=== PATIENT | male | born 1955 | race Caucasian/White ===

== ENCOUNTER → 2016-08-04 | Outpatient (CLI) | payer MEDICAID ==
[2016-08-04 13:10] LABS: CH 30.8; CHCM 32.7; HCT 45.4 % (39.0-53.0); HDW 2.32; HGB 14.4 gm/dL (13.0-17.5); MCHC 31.7 g/dL (31.0-37.0); MCV 94.5 fL (80.0-100.0); Mean Platelet Volume 7.4; RDW 13.6 % (11.5-15.5); WBC 7.7 k/uL (3.8-10.6)
[2016-08-04 13:36] LABS: Magnesium 2.2 mg/dL (1.6-2.3)
[2016-08-04 14:07] LABS: Prostate Specific Antigen 1.2 ng/mL (0.00-4.00)
[2016-08-04 19:49] LABS: Lead Source VENOUS; Lead, Blood <3.4 ug/dL (0.0-9.8)
[2016-08-09 21:01] LABS: Mercury Whole Blood < 2 mcg/L (< 11)
== END | disposition home or self-care (01) ==
LOC: LABWHC1 12:20
PROVIDERS: ATTEND Family Medicine
DX: D64.9 Anemia, unspecified (principal); K21.0 Gastro-esophageal reflux disease with esophagitis; Z77.011 Contact with and (suspected) exposure to lead
CPT/HCPCS: 36415; 80061; 82175; 82570; 83655; 83735; 83825; 84153; 84450; 85027

== ENCOUNTER 2017-11-09 09:19 | Emergency (ER) | payer OTHER, MEDICAID ==
[2017-11-09 09:26] VITALS: TEMP 98
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
[2017-11-09 11:00] VITALS: BP 151/79; PULSE 72; RESP 16
== END 2017-11-09 11:00 | disposition home or self-care (01) ==
LOC: EC 09:19
DX: S06.0X0A Concussion without loss of consciousness, initial encounter (principal); R09.81 Nasal congestion; K21.9 Gastro-esophageal reflux disease without esophagitis; Z87.891 Personal history of nicotine dependence; Z79.899 Other long term (current) drug therapy; V43.52XA Car driver injured in collision with other type car in traffic accident, initial encounter; Y92.410 Unspecified street and highway as the place of occurrence of the external cause
CPT/HCPCS: 70450; 72125; 99284

== ENCOUNTER → 2017-11-30 | Outpatient (CLI) | payer MEDICAID ==
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
== END | disposition home or self-care (01) ==
LOC: RADMRIMAIN 08:13
PROVIDERS: ATTEND Family Medicine
DX: I67.1 Cerebral aneurysm, nonruptured (principal)
CPT/HCPCS: 70544

== ENCOUNTER → 2018-05-11 | Outpatient (CLI) | payer MEDICAID ==
--- NOTE | 2018-05-12 00:07 | MR ---
EXAMINATION TYPE: MR cervical spine wo con DATE OF EXAM: 05/11/2018 COMPARISON: None HISTORY: Cervicalgia / Spondylolisthesis, numbness in both arms TECHNIQUE: Multiplanar, multisequence images of the cervical spine were acquired. Cervical vertebra have normal alignment. There is some degenerative disc space narrowing throughout t he cervical spine with decreased signal in the disks. There are small posterior disc bulges from C3 t o C7. Spinal canal is narrowed to 7 mm at C4-5 which is the narrowest. Canal is 8.5 mm at C3-4 and 8. 5 mm at C6-7. Cervical spinal cord has normal signal pattern. There is no edema. Brainstem appears no rmal. There is no compression fracture. There is no subluxation. Posterior elements are intact. There is no evidence of cervical paraspinal mass. IMPRESSION: Spondylotic changes. No fracture seen. Multilevel posterior small disc bulging and herniation without significant spinal stenosis.
== END ==
LOC: RADMRIMAIN 06:39
PROVIDERS: ATTEND Orthopaedic Surgery Orthopaedic Surgery of the Spine
DX: M50.21 Other cervical disc displacement, high cervical region (principal); M47.812 Spondylosis without myelopathy or radiculopathy, cervical region
CPT/HCPCS: 72141

== ENCOUNTER → 2018-08-10 | Outpatient (CLI) | payer MEDICAID ==
[2018-08-10 10:36] VITALS: BP 121/79; PULSE 65; RESP 16
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
== END | disposition home or self-care (01) ==
LOC: PNWHC3 10:12
PROVIDERS: ATTEND Specialist
DX: G89.29 Other chronic pain (principal); R20.2 Paresthesia of skin; M48.02 Spinal stenosis, cervical region; M50.30 Other cervical disc degeneration, unspecified cervical region; M47.812 Spondylosis without myelopathy or radiculopathy, cervical region; Z87.891 Personal history of nicotine dependence; Z98.890 Other specified postprocedural states
CPT/HCPCS: 99211

== ENCOUNTER 2020-06-25 07:39 | Day surgery (SDC) | payer MEDICAID ==
[2020-06-18 12:54] VITALS: BMI 22.8
[~2020-06-25 07:39] MED LIST: LACTATED RINGERS 1,000 ML IV SCH
[2020-06-25 07:56] VITALS: RESP 16; TEMP 97.7
[2020-06-25] MEDS ORDERED: ONDANSETRON 4 MG/2 ML VIAL IVP ONE ×2 (08:04→11:00)
[2020-06-25] MEDS ORDERED: ONDANSETRON 4 MG/2 ML VIAL ONE ×2 (08:08→10:50)
[2020-06-25] MEDS ORDERED: MIDAZOLAM 2 MG/2 ML VIAL IV ONE (08:10)
[2020-06-25] MEDS ORDERED: LIDOCAINE 1% INJ 10MG/ML (20 ML MDV) ONE (08:52)
[2020-06-25] MEDS ORDERED: PROPOFOL 10 MG/ML 20 ML VIAL IV ONE (08:52)
--- NOTE | 2020-06-25 09:16 | P.PCN ---
Date of Procedure: 06/25/20 Procedure(s) Performed: Brief history: Patient is a pleasant 65-year-old white male scheduled for an elective upper endoscopy as well as colonoscopy as a part of evaluation of on since of GERD and screening for colorectal neoplasia Procedure performed: Esophagogastroduodenoscopy with biopsy Colonoscopy with snare polypectomy. Preoperative diagnosis: GERD Screening for colon cancer Anesthesia: MAC Procedure: After informed consent was obtained from the patient was brought into the endoscopy unit and IV sedation was administered by anesthesia under continuous monitoring. Initially upper endoscopy was done. The Olympus GF 160 video endoscope was inserted inserted into the mouth and esophagus intubated without any difficulty and was gradually advanced into the stomach and duodenum and carefully examined. The bulb and second part of the duodenum had multiple superficial erosions and small ulcerations and biopsies were done from this area.. The scope was then withdrawn into the stomach adequately insufflated with air and upon careful examination the antrum and mild gastritis and b iopsies were done from this area. The body, cardia and fundus appeared normal. The scope was then withdrawn into the esophagus.. A small sliding type hiatal hernia noted. The GE junction was located at 38 cm to the incisors. It appeared regular with some erythema and a few superficial erosion with LA grade a reflux esophagitis Rest of the esophagus appeared normal. Patient tolerated the procedure well. At this time the patient continued to remain sedation. Initial digital rectal examination was normal. Olympus CF 160 video colonoscope was then inserted into the rectum and gradually advanced to the cecum without any difficulty. Careful examination was performed as the scope was gradually being withdrawn. The prep was excellent. The cecum, ascending colon, transverse colon, descending colon, appeared normal. In the distal sigmoid colon there was a 7 mm sessile polyp removed by snare polypectomy. In the mid rectum there was a 5 mm polyp removed by snare polypectomy. Rest of thesigmoid colon and rectum appeared normal. Retroflexion was performed in the rectum and no lesions were noted. Patient tolerated the procedure well. Impression: 1. Upper Endoscopy revealed multiple erosions in the duodenum, gastritis and LA grade B reflux esophagitis 2. Colonoscopy revealed a 7 mm distal sigmoid colon polyp status post polypectomy and a 5 mm rectal polyp status post snare polypectomy Recommendations: Findings of this examination were discussed with the patient as well as his family. He was advised to follow with the biopsy results. He will be started on Prilosec 20 mg daily and follow antireflux measures. He was advised to follow with the biopsy results. If the biopsy shows an adenoma he can have a repeat colonoscopy in 5 years.
[2020-06-25 09:52] VITALS: BP 151/87; PULSE 72
[2020-06-25] MEDS ORDERED: LACTATED RINGERS 1,000 ML IV ONE ×2 (10:42)
[2020-06-25] MEDS ORDERED: FAMOTIDINE 20 MG/2 ML VIAL IVP ONE (11:00)
== END 2020-06-25 11:52 | disposition home or self-care (01) ==
LOC: ORWHC2ENDO 07:39
PROVIDERS: ATTEND Internal Medicine Gastroenterology
DX: K63.5 Polyp of colon (principal); Z12.11 Encounter for screening for malignant neoplasm of colon; K29.50 Unspecified chronic gastritis without bleeding; K21.00 Gastro-esophageal reflux disease with esophagitis, without bleeding; K26.9 Duodenal ulcer, unspecified as acute or chronic, without hemorrhage or perforation; Z86.73 Personal history of transient ischemic attack (TIA), and cerebral infarction without residual deficits
CPT/HCPCS: 88305; 45385; 43239; J2250; J2405; J2001; J2704

== ENCOUNTER → 2021-07-06 | Outpatient (CLI) | payer MEDICAID ==
[2021-07-06 08:46] LABS: HCT 42.8 % (39.0-53.0); HGB 13.9 gm/dL (13.0-17.5); MCH 30.7 pg (25.0-35.0); MCHC 32.6 g/dL (31.0-37.0); MCV 94.3 fL (80.0-100.0); Mean Platelet Volume 6.8; Platelet Count 285 k/uL (150-450); RBC 4.54 m/uL (4.30-5.90); RDW 13.8 % (11.5-15.5); WBC 8.7 k/uL (3.8-10.6)
[2021-07-06 08:53] LABS: African American GFR (CKD) >90 (>60 ml/min/1.73 sqM); Anion Gap 4 mmol/L; Blood Urea Nitrogen 15 mg/dL (9-20); Calcium 9.1 mg/dL (8.4-10.2); Carbon Dioxide 28 mmol/L (22-30); Chloride 105 mmol/L (98-107); Glucose 112 mg/dL (74-99); Non-African American GFR(CKD) >90 (>60 ml/min/1.73 sqM); Potassium 3.8 mmol/L (3.5-5.1); Sodium 137 mmol/L (137-145)
== END | disposition home or self-care (01) ==
LOC: LABPAT 08:23
PROVIDERS: ATTEND Podiatrist Foot & Ankle Surgery
DX: Z01.812 Encounter for preprocedural laboratory examination (principal)
CPT/HCPCS: 36415; 80048; 85027

== ENCOUNTER 2021-07-08 11:35 | Day surgery (SDC) | payer MEDICAID ==
[2021-07-06 17:16] VITALS: BMI 22.8
[~2021-07-08 11:35] MED LIST changes: +HYDROmorphone 0.5 MG/0.5 ML SYRINGE IVP PRN; +LIDOCAINE 1% (10MG/ML) FOR IV START INTRADERMA PRN; +ONDANSETRON 4 MG/2 ML VIAL IVP PRN
[2021-07-08 12:03] VITALS: TEMP 98.1
[2021-07-08] MEDS ORDERED: DEXAMETHASONE SOD PHOSPHATE 4 MG/ML 1 ML VIAL IV ONE (12:10)
[2021-07-08] MEDS ORDERED: MIDAZOLAM 2 MG/2 ML VIAL ONE (12:57)
[2021-07-08] MEDS ORDERED: PROPOFOL 10 MG/ML 20 ML VIAL IV ONE (12:57)
[2021-07-08] MEDS ORDERED: .fentaNYL (PF) 50 MCG/ML 2 ML AMP ONE (12:57)
[2021-07-08] MEDS ORDERED: BUPIVACAINE (PF) 0.5% 30 ML VIAL SQ ONE (13:09)
[2021-07-08] MEDS ORDERED: LIDOCAINE 1% INJ 10MG/ML (20 ML MDV) SQ ONE (13:09)
[2021-07-08] MEDS ORDERED: LACTATED RINGERS 1,000 ML IV ONE (13:30)
--- NOTE | 2021-07-08 13:55 | P.OP ---
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 Anesthesia was then supplemented with 9 mL of a 1:1 dilution of 1% Xylocaine plain and half percent plain Sensorcaine. Patient's left foot ankle were then prepped and draped in usual aseptic manner Above the patient's malleoli padding was applied icing an Esmarch bandage the patient's left foot and ankle were then elevated and exsanguinated of blood and after approximately 1 minutes. A time the ankle tourniquet was inflated to approximately 250 mmHg Attention was directed to the dorsal aspect of the third intermetatarsal space Asians left foot where an approximately 3 cm dorsal linear incision was made the incision was deepened via sharp dissection down through the level of the subcutaneous tissue layers all neurovascular structures encountered were identified isolated and were retracted and any bleeding vessels were clamped electrocauterized. Throughout the surgical procedure copious amounts sterile saline solution was used to irrigate the surgical site Dissection was carried deep via blunt technique down to level of the transverse tarsal ligament which was incised sharply in line with the original skin incision and dissection was then carried deep to this and by applying a plantar to dorsal pressure third intermetatarsal space a white mass was noted consistent with Panda's neuroma it was dissected free medially and laterally distally and proximally was clamped and excised in total from the surgical site. The surgical site was then inspected for any remaining portions and when all portions had been completely removed the surgical site was again flushed with copious amounts sterile saline solution and the subcutaneous tissues were coaptated and maintained utilizing 3-0 Vicryl simple interrupted suture the skin was then closed utilizing skin 4-0 nylon simple interrupted suture. To Nigel fluparth four-inch conformer and 4 inch Coban was used to form a compression dressing and the ankle tourniquet to the patient's left ankle was deflated adequate hemostatic return was seen in all digits of the left foot specifically the third and fourth digits. The patient tolerated the surgery and anesthesia well was taken to the recovery room in good postoperative condition.
[2021-07-08 14:35] VITALS: BP 114/75; PULSE 54; RESP 20
== END 2021-07-08 14:20 | disposition home or self-care (01) ==
LOC: OR 11:35
PROVIDERS: ATTEND Podiatrist Foot & Ankle Surgery
DX: G57.62 Lesion of plantar nerve, left lower limb (principal); K21.9 Gastro-esophageal reflux disease without esophagitis
CPT/HCPCS: 28080; J2250; J1100; J0690; J2405; J2001; J3010; J2704; 88304

== ENCOUNTER → 2022-01-27 | Outpatient (CLI) | payer MEDICAID ==
[2022-01-27 14:19] LABS: HCT 42.2 % (39.6-50.0); HGB 13.4 g/dL (13.0-17.0); MCH 29.1 pg (27.0-32.0); MCHC 31.8 g/dL (32.0-37.0); MCV 91.7 fL (80.0-97.0); NRBC Per 100 WBC 0 /100 WBCS (0.0-0.0); Platelet Count 312 X 10*3/uL (140-440); RDW 13.8 % (11.5-14.5); WBC 8.57 X 10*3/uL (4.50-10.00)
[2022-01-27 14:30] LABS: Appearance,Urine Clear (Clear); Bilirubin,Urine Negative (Negative); Blood,Urine Negative (Negative); Color,Urine Yellow (Yellow); Ketones,Urine Negative (Negative); Nitrite,Urine Negative (Negative); Specific Gravity,Urine 1.023 (1.001-1.030)
[2022-01-27 14:37] LABS: ALT 16 U/L (10-49); AST 17 U/L (14-35); African American GFR (CKD) 114.1 (60.0-200.0); Albumin 4.3 g/dL (3.8-4.9); Alkaline Phosphatase 73 U/L (41-126); BUN/Creat Ratio 18.01 Ratio (12.00-20.00); Calcium 8.7 mg/dL (8.7-10.3); Carbon Dioxide 22.2 mmol/L (20.0-27.5); Chloride 103 mmol/L (96-109); Chol/HDL Ratio 3.74 Ratio; Globulin 2.3 g/dL (1.6-3.3); Glucose 106 mg/dL (70-110); Non-African American GFR(CKD) 98.5 (60.0-200.0); Potassium 3.9 mmol/L (3.5-5.5); Sodium 136 mmol/L (135-145); Total Protein 6.5 g/dL (6.2-8.2); VLDL Calculation 17.62 mg/dL (5.00-40.00)
== END | disposition home or self-care (01) ==
LOC: LABWHC1 09:03
PROVIDERS: ATTEND Family Medicine
DX: Z00.00 Encounter for general adult medical examination without abnormal findings (principal); Z13.88 Encounter for screening for disorder due to exposure to contaminants
CPT/HCPCS: 36415; 80053; 80061; 81003; 82175; 82570; 83655; 83825; 84153; 85027

== ENCOUNTER 2023-02-21 09:51 | Emergency (ER) | payer MEDICARE ==
[2023-02-21 10:07] VITALS: RESP 18; TEMP 97.6
[2023-02-21] MEDS ORDERED: SODIUM CHLORIDE 0.9% 1,000 ML IV STA (10:10)
[2023-02-21] MEDS ORDERED: ONDANSETRON 4 MG/2 ML VIAL IVP STA (10:10)
[2023-02-21] MEDS ORDERED: SODIUM CHLORIDE 0.9% 500 ML 500 ML IV STA (10:10)
[2023-02-21] MEDS ORDERED: KETOROLAC 15 MG/ML 1 ML VIAL IVP STA (10:10)
[2023-02-21] MEDS ORDERED: HYDROmorphone 0.5 MG/0.5 ML SYRINGE IVP STA (10:11)
--- NOTE | 2023-02-21 10:23 | ED ---
Male Urogenital HPI - General Chief complaint: Urogenital Stated complaint: urogenital Time Seen by Provider: 02/21/23 10:07 Source: patient, RN notes reviewed Mode of arrival: ambulatory Limitations: no limitations - History of Present Illness Initial comments: 67-year-old male presents emergency Department with chief complaint of left flank pain. Patient states that he said history kidney stones is exactly same. Patient states his hadn't associated nausea and vomiting nothing makes pain feel better or worse. He states that uncomfortable. Patient denies fevers chills denies any dysuria. - Related Data Home Medications Medication Instructions Recorded Confirmed Ascorbic Acid [Vitamin C with Mojgan 500 mg PO DAILY PRN 07/06/21 07/06/21 Hips] Famotidine [Pepcid AC] 10 mg PO DIRECTED PRN 07/06/21 07/06/21 Previous Rx's Medication Instructions Recorded Ketorolac [Toradol] 10 mg PO Q8HR #15 tab 02/21/23 Ondansetron Odt [Zofran Odt] 4 mg PO Q8HR PRN #10 tab 02/21/23 Tamsulosin [Flomax] 0.4 mg PO DAILY #7 cap 02/21/23 Allergies Allergy/AdvReac Type Severity Reaction Status Date / Time No Known Allergies Allergy Verified 02/21/23 10:07 Review of Systems ROS Statement: Those systems with pertinent positive or pertinent negative responses have been documented in the HPI. ROS Other: All systems not noted in ROS Statement are negative. Past Medical History Past Medical History: GERD/Reflux Additional Past Medical History / Comment(s): neck pain, kidney stones, hematuria History of Any Multi-Drug Resistant Organisms: None Reported Past Surgical History: Orthopedic Surgery Additional Past Surgical History / Comment(s): Right shoulder surgery - 2012 Past Anesthesia/Blood Transfusion Reactions: No Reported Reaction Past Psychological History: No Psychological Hx Reported Smoking Status: Former smoker Past Alcohol Use History: Rare Past Drug Use History: Marijuana - Past Family History Mother Family Medical History: Cancer General Exam Limitations: no limitations General appearance: alert, in no apparent distress Head exam: Present: atraumatic, normocephalic, normal inspection Eye exam: Present: normal appearance, PERRL, EOMI. Absent: scleral icterus, conjunctival injection, periorbital swelling Respiratory exam: Present: normal lung sounds bilaterally. Absent: respiratory distress, wheezes, rales, rhonchi, stridor Cardiovascular Exam: Present: regular rate, normal rhythm, normal heart sounds. Absent: systolic murmur, diastolic murmur, rubs, gallop, clicks GI/Abdominal exam: Present: soft, tenderness, normal bowel sounds. Absent: distended, guarding, rebound, rigid Back exam: Present: CVA tenderness (L). Absent: CVA tenderness (R) Neurological exam: Present: alert Course Vital Signs 02/21/23 02/21/23 02/21/23 10:04 12:00 13:10 Temperature 97.6 F Pulse Rate 73 62 67 Respiratory 18 18 18 Rate Blood Pressure 185/111 179/97 169/104 O2 Sat by Pulse 97 93 L 98 Oximetry Medical Decision Making - Medical Decision Making Was pt. sent in by a medical professional or institution (, PA, DRY CELL TESTER, urgent care, hospital, or correction...) When possible be specific @ -No Did you speak to anyone other than the patient for history (EMS, parent, family, police, friend...)? What history was obtained from this source @ -No Did you review nursing and triage notes (agree or disagree)? Why? @ -I reviewed and agree with nursing and triage notes Were old charts reviewed (outside hosp., previous admission, EMS record, old EKG, old radiological studies, urgent care reports/EKG's, correction records)? Report findings @ -No old charts were reviewed Differential Diagnosis (chest pain, altered mental status, abdominal pain women, abdominal pain men, vaginal bleeding, weakness, fever, dyspnea, syncope, headache, dizziness, GI bleed, back pain, seizure, CVA, palpatations, mental health, musculoskeletal)? @ -nDifferential Abdominal Pain Men: Appendicitis, cholecystitis, diverticulosis, ischemic bowel, pancreatitis, hepatitis, UTI, gastroenteritis, AAA, incarcerated hernia, bowel obstruction, constipation, inflammatory bowel, hepatitis, peptic ulcer disease, splenic infarction, perforated viscus, testicular torsion, this is not meant to be an all-inclusive listble EKG interpreted by me (3pts min.). @ -None X-rays interpreted by me (1pt min.). @ -KUB nonspecific abdomen CT interpreted by me (1pt min.). @ -None done U/S interpreted by me (1pt. min.). @ -None done What testing was considered but not performed or refused? (CT, X-rays, U/S, labs)? Why? @ -None What meds were considered but not given or refused? Why? @ -None Did you discuss the management of the patient with other professionals (professionals i.e. , PA, DRY CELL TESTER, lab, RT, psych nurse, psychologist social, [employer] consultant, teacher, deck officer, case manager specialist)? Give summary @ -No Was smoking cessation discussed for >3mins.? @ -No Was critical care preformed (if so, how long)? @ -No Were there social determinants of health that impacted care today? How? (Homelessness, low income, unemployed, alcoholism, drug addiction, transportation, low edu. Level, literacy, decrease access to med. care, shelter, rehab)? @ -No Was there de-escalation of care discussed even if they declined (Discuss DNR or withdrawal of care, Hospice)? DNR status @ -No What co-morbidities impacted this encounter? (DM, HTN, Smoking, COPD, CAD, Cancer, CVA, ARF, Chemo, Hep., AIDS, mental health diagnosis, sleep apnea, morbid obesity)? @ -None Was patient admitted / discharged? Hospital course, mention meds given and route, prescriptions, significant lab abnormalities, going to OR and other pertinent info. @ -Discharged patient is greatly. He refers and pain meds. Patient's symptoms are consistent with prior kidney stone. I did offer CT given there is no identification of stone on KUB and no blood in his urine patient feels comf ortable discharged with close follow-up return parameters were discussed. Undiagnosed new problem with uncertain prognosis? @ -No Drug Therapy requiring intensive monitoring for toxicity (Heparin, Nitro, Insulin, Cardizem)? @ -No Were any procedures done? @ -No Diagnosis/symptom? @ -Left flank pain, kidney stone Acute, or Chronic, or Acute on Chronic? @ -Acute Uncomplicated (without systemic symptoms) or Complicated (systemic symptoms)? @ -Uncomplicated Side effects of treatment? @ -No Exacerbation, Progression, or Severe Exacerbation? @ -No Poses a threat to life or bodily function? How? (Chest pain, USA, LA, pneumonia, PE, COPD, DKA, ARF, appy, cholecystitis, CVA, Diverticulitis, Homicidal, Suicidal, threat to staff... and all critical care pts) @ -No - Lab Data Result diagrams: 02/21/23 10:12 02/21/23 10:12 Lab Results 02/21/23 02/21/23 02/21/23 Range/Units 10:12 10:12 10:12 WBC 11.8 H (3.8-10.6) k/uL RBC 4.63 (4.30-5.90) m/uL Hgb 14.5 (13.0-17.5) gm/dL Hct 42.1 (39.0-53.0) % MCV 90.9 (80.0-100.0) fL MCH 31.3 (25.0-35.0) pg MCHC 34.4 (31.0-37.0) g/dL RDW 13.8 (11.5-15.5) % Plt Count 281 (150-450) k/uL MPV 7.5 Neutrophils % 82 % Lymphocytes % 13 % Monocytes % 3 % Eosinophils % 1 % Basophils % 0 % Neutrophils # 9.7 H (1.3-7.7) k/uL Lymphocytes # 1.5 (1.0-4.8) k/uL Monocytes # 0.3 (0-1.0) k/uL Eosinophils # 0.2 (0-0.7) k/uL Basophils # 0.0 (0-0.2) k/uL Sodium 137 (137-145) mmol/L Potassium 3.7 (3.5-5.1) mmol/L Chloride 102 (98-107) mmol/L Carbon Dioxide 26 (22-30) mmol/L Anion Gap 9 mmol/L BUN 17 (9-20) mg/dL Creatinine 0.58 L (0.66-1.25) mg/dL Est GFR (CKD-EPI)AfAm >90 (>60 ml/min/1.73 sqM) Est GFR (CKD-EPI)NonAf >90 (>60 ml/min/1.73 sqM) Glucose 137 H (74-99) mg/dL Calcium 9.1 (8.4-10.2) mg/dL Total Bilirubin 0.5 (0.2-1.3) mg/dL AST 25 (17-59) U/L ALT 28 (4-49) U/L Alkaline Phosphatase 88 (38-126) U/L Total Protein 7.6 (6.3-8.2) g/dL Albumin 4.5 (3.5-5.0) g/dL Lipase 39 (23-300) U/L Urine Color Light Red Urine Appearance Cloudy (Clear) Urine pH 7.5 (5.0-8.0) Ur Specific [place] 1.017 (1.001-1.035) Urine Protein 1+ H (Negative) Urine Glucose (UA) Negative (Negative) Urine Ketones Negative (Negative) Urine Blood Negative (Negative) Urine Nitrite Negative (Negative) Urine Bilirubin Negative (Negative) Urine Urobilinogen <2.0 (<2.0) mg/dL Ur Leukocyte Esterase Negative (Negative) Urine WBC 2 (0-5) /hpf Ur Squamous Epith Cells <1 (0-4) /hpf Urine Mucus Few H (None) /hpf Disposition Clinical Impression: Left flank pain, Kidney stone Disposition: HOME SELF-CARE Condition: Stable Instructions (If sedation given, give patient instructions): Kidney Stones (ED) Additional Instructions: Please return to the Emergency Department if symptoms worsen or any other concerns. Prescriptions: Tamsulosin [Flomax] 0.4 mg PO DAILY #7 cap Ketorolac [Toradol] 10 mg PO Q8HR #15 tab Ondansetron Odt [Zofran Odt] 4 mg PO Q8HR PRN #10 tab PRN Reason: Nausea Is patient prescribed a controlled substance at d/c from ED?: No Referrals: Zachary Silva DO [Primary Care Provider] - 1-2 days Time of Disposition: 13:01
[2023-02-21 10:32] LABS: Basophils % (A) 0 %; Eosinophils # (A) 0.2 k/uL (0-0.7); Eosinophils % (A) 1 %; HCT 42.1 % (39.0-53.0); HGB 14.5 gm/dL (13.0-17.5); Lymphocytes # (A) 1.5 k/uL (1.0-4.8); Lymphocytes % (A) 13 %; MCH 31.3 pg (25.0-35.0); MCHC 34.4 g/dL (31.0-37.0); MCV 90.9 fL (80.0-100.0); Mean Platelet Volume 7.5; Monocytes # (A) 0.3 k/uL (0-1.0); Monocytes % (A) 3 %; Neutrophils # (A) 9.7 k/uL (1.3-7.7); Neutrophils % (A) 82 %; Platelet Count 281 k/uL (150-450); RBC 4.63 m/uL (4.30-5.90); RDW 13.8 % (11.5-15.5); WBC 11.8 k/uL (3.8-10.6)
[2023-02-21 10:47] LABS: ALT 28 U/L (4-49); AST 25 U/L (17-59); African American GFR (CKD) >90 (>60 ml/min/1.73 sqM); Albumin 4.5 g/dL (3.5-5.0); Alkaline Phosphatase 88 U/L (38-126); Anion Gap 9 mmol/L; Blood Urea Nitrogen 17 mg/dL (9-20); Calcium 9.1 mg/dL (8.4-10.2); Carbon Dioxide 26 mmol/L (22-30); Chloride 102 mmol/L (98-107); Glucose 137 mg/dL (74-99); Lipase 39 U/L (23-300); Non-African American GFR(CKD) >90 (>60 ml/min/1.73 sqM); Potassium 3.7 mmol/L (3.5-5.1); Sodium 137 mmol/L (137-145); Total Bilirubin 0.5 mg/dL (0.2-1.3); Total Protein 7.6 g/dL (6.3-8.2)
--- NOTE | 2023-02-21 10:57 | XR ---
EXAMINATION TYPE: XR KUB DATE OF EXAM: 02/21/2023 COMPARISON: 05/28/2016 INDICATION: Flank pain left lower back pain TECHNIQUE: Single view abdomen upright view FINDINGS: There is a normal bowel gas pattern. No free air is evident. No suspicious differential air-fluid lev els are evident. Psoas margins are normal. No organomegaly is present. No suspicious calcifications are evident. IMPRESSION: 1. Unremarkable Abdomen
[2023-02-21 12:33] LABS: Appearance,Urine Cloudy (Clear); Bilirubin,Urine Negative (Negative); Blood,Urine Negative (Negative); Color,Urine Light Red; Glucose,Urine (UA) Negative (Negative); Ketones,Urine Negative (Negative); Leukocyte Esterase,Urine Negative (Negative); Mucus,Urine Few /hpf; Nitrite,Urine Negative (Negative); PH, Urine 7.5 (5.0-8.0); Protein,Urine 1+ (Negative); Specific Gravity,Urine 1.017 (1.001-1.035); Squamous Epithelial Cell,Urine <1 /hpf (0-4); Urobilinogen,Urine <2.0 mg/dL (<2.0); WBC,Urine 2 /hpf (0-5)
[2023-02-21] MEDS ORDERED: ACET/COD 300 MG/30 MG STARTER PACK 6 TAB BTL PO STA (13:01)
[2023-02-21 13:13] VITALS: BP 169/104; PULSE 67
== END 2023-02-21 13:26 | disposition home or self-care (01) ==
LOC: EC 09:51
DX: N20.0 Calculus of kidney (principal); Z87.891 Personal history of nicotine dependence; F12.90 Cannabis use, unspecified, uncomplicated
CPT/HCPCS: 99284 ×2; 96374 ×2; 96375 ×3; 96361 ×3; 36415; 80053; 83690; 85025; 81001; 74018; J2405; J1885; J1170

== ENCOUNTER → 2024-02-01 | Outpatient (CLI) | payer MEDICARE ==
[2024-02-01 10:12] LABS: HCT 43.7 % (39.0-53.0); HGB 13.7 gm/dL (13.0-17.5); MCH 29.4 pg (25.0-35.0); MCHC 31.3 g/dL (31.0-37.0); MCV 93.7 fL (80.0-100.0); Mean Platelet Volume 7.2; Platelet Count 261 k/uL (150-450); RBC 4.67 m/uL (4.30-5.90); RDW 13.8 % (11.5-15.5); WBC 7.1 k/uL (3.8-10.6)
[2024-02-01 11:24] LABS: Appearance,Urine Clear (Clear); Bilirubin,Urine Negative (Negative); Blood,Urine Trace (Negative); Color,Urine Light Yellow; Glucose,Urine (UA) Negative (Negative); Hyaline Casts,Urine 1 /lpf (0-2); Ketones,Urine Negative (Negative); Leukocyte Esterase,Urine Negative (Negative); Mucus,Urine Few /hpf; Nitrite,Urine Negative (Negative); PH, Urine 5.5 (5.0-8.0); Protein,Urine Trace (Negative); RBC,Urine 1 /hpf (0-5); Specific Gravity,Urine 1.026 (1.001-1.035); Squamous Epithelial Cell,Urine <1 /hpf (0-4); Urobilinogen,Urine <2.0 mg/dL (<2.0); WBC,Urine 1 /hpf (0-5)
[2024-02-01 15:49] LABS: BUN/Creat Ratio 18.62 Ratio (12.00-20.00); Blood Urea Nitrogen 14.9 mg/dL (9.0-27.0); Glucose 106 mg/dL (70-110); LDL Cholesterol,Calculated 133.3 mg/dL (0.0-131.0); VLDL Calculation 12.26 mg/dL (5.00-40.00)
[2024-02-01 15:50] LABS: ALT 18 U/L (10-49); AST 16 U/L (14-35); Albumin 4.4 g/dL (3.8-4.9); Alkaline Phosphatase 80 U/L (41-126); Carbon Dioxide 24.4 mmol/L (21.6-31.8); Chloride 105 mmol/L (96-109); Globulin 2.1 g/dL (1.6-3.3); Potassium 4.3 mmol/L (3.5-5.5); Sodium 140 mmol/L (135-145); Total Bilirubin 0.3 mg/dL (0.3-1.2); Total Protein 6.5 g/dL (6.2-8.2)
== END | disposition home or self-care (01) ==
LOC: LABWHC1 08:42
PROVIDERS: ATTEND Family Medicine
DX: Z00.01 Encounter for general adult medical examination with abnormal findings (principal)
CPT/HCPCS: 36415; 80053; 80061; 81001; 84153; 85027

== ENCOUNTER → 2024-02-10 | Outpatient (CLI) | payer MEDICARE ==
[2024-02-10 15:30] LABS: Blood Urea Nitrogen 15.4 mg/dL (9.0-27.0); Chloride 104 mmol/L (96-109); Chol/HDL Ratio 3.54 Ratio; Glucose 111 mg/dL (70-110); LDL Cholesterol,Calculated 137.1 mg/dL (0.0-131.0); MCH 29.2 pg (27.0-32.0); MCHC 32.6 g/dL (32.0-37.0); MCV 89.8 FL (80.0-97.0); NRBC Per 100 WBC 0 X 10*3/uL (0.00-0.01); Platelet Count 296 X 10*3/uL (140-440); Potassium 4.1 mmol/L (3.5-5.5); RBC 4.79 X 10*6/uL (4.40-5.60); RDW 13.8 % (11.5-14.5); Sodium 140 mmol/L (135-145)
[2024-02-10 15:31] LABS: ALT 21 U/L (10-49); AST 18 U/L (14-35); Albumin 4.5 g/dL (3.8-4.9); Albumin/Globulin Ratio 2.05 Ratio (1.60-3.17); Alkaline Phosphatase 76 U/L (41-126); Calcium 9.1 mg/dL (8.7-10.3); Carbon Dioxide 24.9 mmol/L (21.6-31.8); Globulin 2.2 g/dL (1.6-3.3); Total Bilirubin 0.2 mg/dL (0.3-1.2); Total Protein 6.7 g/dL (6.2-8.2)
[2024-02-10 15:47] LABS: Appearance,Urine Turbid (Clear); Bilirubin,Urine Negative (Negative); Blood,Urine Trace (Negative); Color,Urine Yellow (Yellow); Ketones,Urine Negative (Negative); Nitrite,Urine Negative (Negative); PH, Urine 5.5; Specific Gravity,Urine 1.022 (1.001-1.030); Urobilinogen,Urine 0.2 E.U./DL
[2024-02-10 16:22] LABS: Bacteria,Urine None Seen (None Seen); Calcium Oxalate Crystals,Urine Present (None Seen)
== END | disposition home or self-care (01) ==
LOC: LABWHC1 08:02
PROVIDERS: ATTEND Family Medicine
DX: Z00.01 Encounter for general adult medical examination with abnormal findings (principal); R97.20 Elevated prostate specific antigen [PSA]
CPT/HCPCS: 36415; 80053; 80061; 81001; 84153; 85027